=== PATIENT | female | born 1975 | race Caucasian/White ===

== ENCOUNTER 2016-12-27 11:56 | Emergency (ER) | payer BC | END 2016-12-27 13:10 | disposition home or self-care (01) | LOC: ER 11:56 | DX: B37.3 Candidiasis of vulva and vagina (principal); E03.9 Hypothyroidism, unspecified; F41.9 Anxiety disorder, unspecified; F17.210 Nicotine dependence, cigarettes, uncomplicated; Z88.1 Allergy status to other antibiotic agents; Z87.442 Personal history of urinary calculi ==

== ENCOUNTER 2016-12-29 20:14 | Emergency (ER) | payer BC | END 2016-12-29 21:19 | disposition home or self-care (01) | LOC: ER 20:14 | DX: A60.04 Herpesviral vulvovaginitis (principal); F41.9 Anxiety disorder, unspecified; F17.210 Nicotine dependence, cigarettes, uncomplicated; Z88.1 Allergy status to other antibiotic agents ==

== ENCOUNTER 2017-01-23 04:20 | Emergency (ER) | payer BC | END 2017-01-23 07:54 | disposition home or self-care (01) | LOC: ER 04:20 | DX: N39.0 Urinary tract infection, site not specified (principal); F41.9 Anxiety disorder, unspecified; E05.90 Thyrotoxicosis, unspecified without thyrotoxic crisis or storm; F17.210 Nicotine dependence, cigarettes, uncomplicated; Z88.1 Allergy status to other antibiotic agents | CPT/HCPCS: 36415; 96361; 96365; 96375; J0696 ==